=== PATIENT | male | born 1970 | race Caucasian/White ===

== ENCOUNTER 2016-12-25 16:50 | Observation (INO) ==
[2016-12-25 17:44] LABS: Basophils % 0.4 %; Eosinophils % 0.6 %; Hematocrit 45.3 % (37.5-50.1); Hemoglobin 16.2 g/dL (12.9-16.9); Immature Granulocytes % 0.4 % (0-4); Lymphocytes % 11.7 %; Mean Corpuscular HGB Conc 35.8 g/dL (31.6-35.5); Mean Corpuscular Hemoglobin 30.3 pg (28.0-33.3); Mean Corpuscular Volume 84.7 fL (83.0-100.0); Mean Platelet Volume 11.7 fL (9.4-12.4); Monocytes % 3.9 %; Platelet Count 196 K/mcL (140-400); Red Blood Count 5.35 M/mcL (4.19-5.50); Red Cell Distribution Width 12.5 % (11.5-14.5)
[2016-12-25 17:45] LABS: Basophils # 0.1 K/mcL (0.0-0.2); Eosinophils # 0.1 K/mcL (0.0-0.6); Lymphocytes # 1.5 K/mcL (0.6-4.6); Monocytes # 0.5 K/mcL (0.0-1.3); Neutrophils # 10.3 K/mcL (1.6-8.9)
[2016-12-25 18:00] LABS: BUN/Creatinine Ratio 15 (6-26); Blood Urea Nitrogen 27 mg/dL (8-26); Calcium 10.7 mg/dL (8.6-10.8); Carbon Dioxide 22 mEq/L (19-29); Chloride 98 mEq/L (98-109); Glucose 144 mg/dL (70-99); Magnesium 2.3 mg/dL (1.6-2.6); Osmolality,Calculated 290 (280-300); Potassium 3.5 mEq/L (3.5-4.5); Sodium 136 mEq/L (136-145); eGFR For African Americans 48 (> 60); eGFR For Non-African Americans 40 (> 60)
[2016-12-25 18:02] LABS: Acetaminophen < 1.0 mcg/mL (10-30); Salicylate < 5.0 mg/dL (15-30)
[2016-12-25] MEDS ORDERED: 0.9 % Sodium Chloride 1,000 ML IVC ONE ×2 (18:42→18:45)
--- NOTE | 2016-12-25 18:44 | Emergency Department Note ---
START Narrative - START START: I examined this patient and my medical decision-making was reviewed with the Resident Physician. I agree with the documented findings, disposition and treatment plan as described except to the extent set forth below. Patient presents to the ED with altered mental status and seizure. 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 He only ate a plum today. He recently started a new diet pill. EMS was called and he had a seizure en route. On arrival here he is diaphoretic. 99 rectal. Abdomen soft. Plan. Complaining of some cramping. Appears dehydrated with the creatinine to 1.8. We will check a CPK. Likely observation.
--- NOTE | 2016-12-25 18:58 | Emergency Department Note ---
Disposition Clinical Impression: New onset seizure Heat stroke Qualifiers: Encounter type: initial encounter Qualified Code(s): T67.0XXA - Heatstroke and sunstroke, initial encounter Disposition: Admitted As Inpatient Condition: Good Time of Disposition: 19:36 General Adult HPI - General Chief complaint: ED Seizure Stated complaint: "heat stroke" Time Seen by Provider: 12/25/16 17:19 Source: patient Limitations: no limitations Nursing Notes Reviewed: Yes Vital Signs Reviewed: Yes - History of Present Illness HPI Narrative: Patient got extremely hot while at work. Did not have a significant by mouth intake. Became confused. EMS states they witnessed a tonic-clonic seizure activity. Patient not complaining of generalized muscle aches. Is diaphoretic. Denies any pain other than the generalized muscle aches. Provocation was getting too hot. No alleviating factors. No radiation. Pain Scale: 10 - Related Data Home Medications Medication Instructions Recorded Confirmed Glucosamine Sulfate 1,000 mg PO DAILY 12/25/16 12/25/16 Ibuprofen [Motrin] 200 mg PO Q6H PRN 12/25/16 12/25/16 Sertraline [Zoloft] 50 - 100 mg PO DAILY 12/25/16 12/25/16 Allergies Allergy/AdvReac Type Severity Reaction Status Date / Time No Known Allergies Allergy Verified 05/06/15 07:25 All systems ED: reviewed and negative except as stated. Constitutional: Reports: other (Patient got extremely hot while at work.). Denies: fever, chills Cardiovascular: Reports: syncope. Denies: chest pain, palpitations Respiratory: Denies: cough, dyspnea Gastrointestinal: Denies: abdominal pain, nausea, vomiting, diarrhea, hematemesis Genitourinary: Denies: urgency, dysuria, frequency Musculoskeletal: Denies: back pain, neck pain Integumentary: Denies: rash Neurological: Reports: weakness. Denies: headache, numbness, paresthesias Past Medical History - Past Medical History Attestation: Yes The following information was validated with the patient. Medical history: Reports: no medical history, other Surgical history: Reports: no surgical history Psychiatric history: Reports: no psych history - Social History Smoking Status: Never smoker Alcohol use: Reports: none Drug use: Reports: unknown Physical Exam - General Limitations: no limitations General appearance: alert, in no apparent distress - Head Head exam: atraumatic, normocephalic, normal inspection - Eye Eye exam: Present: normal appearance, PERRL, EOMI. Absent: scleral icterus - ENT ENT exam: normal exam, normal oropharynx, mucous membranes dry - Neck Neck exam: Present: normal inspection, full ROM, trachea midline. Absent: tenderness - Chest Chest inspection: Present: normal inspection, symmetric chest wall rise. Absent : tenderness, rash - Respiratory Respiratory exam: Present: normal lung sounds bilaterally. Absent: respiratory distress, accessory muscle use - Cardiovascular Cardiovascular exam: Present: normal rhythm, tachycardia, normal heart sounds - Abdominal Exam Abdominal exam: Present: soft, Non-Tender, normal bowel sounds. Absent: organomegaly - Extremities Exam Extremities exam: Present: normal inspection, full ROM, normal capillary refill. Absent: tenderness, pedal edema - Back Exam Back exam: Present: normal inspection. Absent: tenderness, CVA tenderness (R), CVA tenderness (L) - Neurological Exam Neurological exam: Present: alert, oriented X3 - Psychiatric Psychiatric exam: Present: normal affect, normal mood - Skin Skin exam: Present: warm, intact, normal color, diaphoresis Course Course Narrative: Male patient presented to the emergency department from work. He presents with EMS. Patient is diaphoretic and ashen in color. EMS states that they found him at work which was a very hot environment. He is only had a plum to eat today. He has been on diet medication for the past week. They state that he was confused on their arrival. After they got him in a truck and attempted to start cooling him he had what appeared to be a seizure. This does not appear that he has urinated or defecated on himself however they describe a tonic- clonic motion. Patient has no history of seizures. They state the patient was very warm to touch. They gave 1 L of fluid and attempted to call the patient with ice packs. His blood glucose was within normal limits. He is alert and oriented 3 while here. He is diaphoretic. He does have a rectal temperature of 99.3. He has ice packs placed in his axillas. Basic lab workup showed an elevated creatinine. We also scanned patient's head for new onset seizures. This was normal. He has been given 3 L of fluid. He denies any chest pain or shortness of breath. His lung sounds are clear heart tones are normal. His abdomen is soft and nontender on exam. He is not able to give us a urine sample. He is complaining of cramps all over but refuses pain medication. We will admit patient to the hospital for heat stroke. He is agreeable to this. Vital Signs Temperature 98.6 F 12/25/16 16:51 Pulse Rate 74 12/25/16 16:51 Respiratory Rate 18 12/25/16 16:51 Blood Pressure 109/68 12/25/16 16:51 O2 Sat by Pulse Oximetry 93 12/25/16 16:51 Temperature 98.1 F 12/26/16 15:57 Pulse Rate 64 12/26/16 15:57 Respiratory Rate 16 12/26/16 15:57 Blood Pressure 108/71 12/26/16 15:57 O2 Sat by Pulse Oximetry 96 12/26/16 15:57 Medical Decision Making - Medical Records Medical records reviewed: Yes I reviewed the patient's medical records. - Lab Data Lab results reviewed: Yes I reviewed the patient's lab results. Result diagrams: 12/26/16 02:56 12/26/16 02:56 Lab Results 12/25/16 12/25/16 12/25/16 Range/Units 16:52 17:35 17:35 WBC 12.4 H (4.3-11.1) K/mcL RBC 5.35 (4.19-5.50) M/mcL Hgb 16.2 (12.9-16.9) g/dL Hct 45.3 (37.5-50.1) % MCV 84.7 (83.0-100.0) fL MCH 30.3 (28.0-33.3) pg MCHC 35.8 H (31.6-35.5) g/dL RDW 12.5 (11.5-14.5) % Plt Count 196 (140-400) K/mcL MPV 11.7 (9.4-12.4) fL Immature Gran % 0.4 (0-4) % Seg Neutrophils % 83.0 % Lymphocytes % 11.7 % Monocytes % 3.9 % Eosinophils % 0.6 % Basophils % 0.4 % Neutrophils # 10.3 H (1.6-8.9) K/mcL Lymphocytes # 1.5 (0.6-4.6) K/mcL Monocytes # 0.5 (0.0-1.3) K/mcL Eosinophils # 0.1 (0.0-0.6) K/mcL Basophils # 0.1 (0.0-0.2) K/mcL PT (9.4-12.1) Seconds INR APTT (26.0-36.0) Seconds Sodium 136 (136-145) mEq/L Potassium 3.5 (3.5-4.5) mEq/L Chloride 98 (98-109) mEq/L Carbon Dioxide 22 (19-29) mEq/L BUN 27 H (8-26) mg/dL Creatinine 1.83 H (0.72-1.25) mg/dL Est GFR ( Amer) 48 L (> 60) Est GFR (Non-Af Amer) 40 L (> 60) BUN/Creatinine Ratio 15 (6-26) Glucose 144 H (70-99) mg/dL POC Glucose 149 H (58-89) Calculated Osmolality 290 (280-300) Calcium 10.7 (8.6-10.8) mg/dL Magnesium 2.3 (1.6-2.6) mg/dL Total Bilirubin (0.2-1.2) mg/dL Direct Bilirubin (0.0-0.5) mg/dL Indirect Bilirubin (0.0-1.2) mg/dL AST (5-34) Units/L ALT (0-55) Units/L Alkaline Phosphatase (38-126) Units/L Creatine Kinase 413 H (30-200) Units/L Serum Total Protein (6.0-8.3) g/dL Albumin (3.5-5.0) g/dL Globulin (2.4-3.5) g/dL Albumin/Globulin Ratio (1.1-2.2) Salicylates < 5.0 L (15-30) mg/dL Acetaminophen < 1.0 L (10-30) mcg/mL 12/25/16 12/25/16 Range/Units 17:35 17:35 WBC (4.3-11.1) K/mcL RBC (4.19-5.50) M/mcL Hgb (12.9-16.9) g/dL Hct (37.5-50.1) % MCV (83.0-100.0) fL MCH (28.0-33.3) pg MCHC (31.6-35.5) g/dL RDW (11.5-14.5) % Plt Count (140-400) K/mcL MPV (9.4-12.4) fL Immature Gran % (0-4) % Seg Neutrophils % % Lymphocytes % % Monocytes % % Eosinophils % % Basophils % % Neutrophils # (1.6-8.9) K/mcL Lymphocytes # (0.6-4.6) K/mcL Monocytes # (0.0-1.3) K/mcL Eosinophils # (0.0-0.6) K/mcL Basophils # (0.0-0.2) K/mcL PT 11.6 (9.4-12.1) Seconds INR 1.1 APTT 30.3 (26.0-36.0) Seconds Sodium (136-145) mEq/L Potassium (3.5-4.5) mEq/L Chloride (98-109) mEq/L Carbon Dioxide (19-29) mEq/L BUN (8-26) mg/dL Creatinine (0.72-1.25) mg/dL Est GFR ( Amer) (> 60) Est GFR (Non-Af Amer) (> 60) BUN/Creatinine Ratio (6-26) Glucose (70-99) mg/dL POC Glucose (58-89) Calculated Osmolality (280-300) Calcium (8.6-10.8) mg/dL Magnesium (1.6-2.6) mg/dL Total Bilirubin 0.8 (0.2-1.2) mg/dL Direct Bilirubin 0.3 (0.0-0.5) mg/dL Indirect Bilirubin 0.5 (0.0-1.2) mg/dL AST 58 H (5-34) Units/L ALT 92 H (0-55) Units/L Alkaline Phosphatase 62 (38-126) Units/L Creatine Kinase (30-200) Units/L Serum Total Protein 8.8 H (6.0-8.3) g/dL Albumin 4.9 (3.5-5.0) g/dL Globulin 3.9 H (2.4-3.5) g/dL Albumin/Globulin Ratio 1.3 (1.1-2.2) Salicylates (15-30) mg/dL Acetaminophen (10-30) mcg/mL - Radiology Data Radiology results reviewed: Yes I reviewed the patient's radiology results. Head CT 12/25/16 17:20 IMPRESSION: No acute intracranial abnormality. D/ / Brandon Zuniga MD / Brandon Zuniga MD Interpreting Provider: Brandon Zuniga MD - EKG Data EKG #1 EKG attestation: Yes I reviewed and interpreted this EKG. EKG results narrative: Normal sinus rhythm at a rate of 75. NV interval is 143. Respirations 93. QT is 372. QTC is 401. No signs of acute ischemia. No old EKG to compare to.
[2016-12-25 19:02] LABS: Creatine Kinase 413 Units/L (30-200)
[2016-12-25] MEDS ORDERED: Naloxone 0.4 MG/ML INJ IVP PRN (20:57)
[2016-12-25] MEDS ORDERED: Ondansetron 4 MG/2 ML VIAL IVP PRN (20:57)
[2016-12-25] MEDS ORDERED: Acetaminophen 325 MG TABLET PO PRN (20:57)
[2016-12-25] MEDS ORDERED: 0.9 % Sodium Chloride 1,000 ML IVC SCH (21:00)
[2016-12-25] MEDS ORDERED: 0.9 % Sodium Chloride w KCl 40 MEQ/1,000 ML MLS IVC SCH (21:00)
--- NOTE | 2016-12-25 21:03 | Event Note ---
Date of Encounter: 12/25/16 Time of Encounter: 20:57 I examined this patient and my medical decision-making was reviewed with the Resident Physician, Dr. Daisha Magana. I agree with the documented findings, disposition and treatment plan as described except to the extent set forth below. I have independently obtained history and examined the patient and my findings are summarized below: Patient was brought by EMS from work after he suffered a heat stroke. He had a witnessed seizure in the ambulance. We will treat him with IV fluids. Seizure precautions. I will order an MRI to workup the cause of seizures.
--- NOTE | 2016-12-25 21:05 | Internal Med History&Physical ---
<Daisha Magana - Last Filed: 12/25/16 22:32> Date of Encounter: 12/25/16 Time of Encounter: 20:30 Assessment and Plan (1) Heat stroke Current visit: Yes Status: Acute - With reported altered mental status, tachycardiac, dyspnea and seizure. - Improved as patient's mental status and vital sign including temperature normalized. - Continue aggressive IV fluid resuscitation. - Will check LFTs, PTT, PT/INR. - Continue close monitoring. Qualifiers: Encounter type: initial encounter Qualified Code(s): T67.0XXA - Heatstroke and sunstroke, initial encounter (2) New onset seizure Current visit: Yes Status: Acute - Likely associated with heat stroke. His diet medication Contrave also has seizure listed as possible side effect. - Head CT found no acute intracranial abnormality. - Will obtain brain MRI for further evaluation. - Hold Contrave. Patient is also recommended to discuss with his PCP about continuation of that medication after discharge. - Seizure precaution. - IV Ativan prn seizure activity. - Closely monitor. (3) Rhabdomyolysis Current visit: Yes Status: Acute - Elevated CK (413) on admission. - Likely secondary to heat stroke and seizure. - Continue aggressive IV fluid resuscitation. - Recheck renal function and CK in the midnight and AM. Qualifiers: Rhabdomyolysis type: non-traumatic Qualified Code(s): M62.82 - Rhabdomyolysis (4) TRAE (acute kidney injury) Current visit: Yes Status: Acute - SCr 1.83, which is significantly elevated compared to SCr 0.71 pm 10/22/15. - Likely secondary to dehydration, heat stroke and/or rhabdomyolysis. - Continue aggressive IV fluid resuscitation. - Avoid nephrotoxin. - Strict I/O. - Closely monitor renal function and electrolytes. (5) DYAN on CPAP Current visit: Yes Status: Chronic - Continue CPAP use. Internal Medicine - H&P: HPI Chief complaint: heat stroke Admitted From: Emergency Dept Plans for Post Hospital Care: Home History of present illness: Mr. Lawson is a 46 year old male with PMH of DYAN currently on CPAP at home. Patient was send to [facility] ED for heat stroke. 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 Patient reports seeing "purple splash" and having tunnel hearing, dizziness, tachypnea, dyspnea and vomiting before he blacked out. He states he laid down and denies hitting any part of his body. Per EMS, patient had witnessed tonic-clonic seizure at the scene but no tongue bitting or incontinence. Patient received 1L of IV fluid and was brought to the ED. Patient reports being able to recognized where he is within 30 secs after he woke up. Patient complains of diffuse muscle cramp since. Patient denies known history of seizure. Patient received 2L of IV NS in the ED. Past Med Surg Social Fam HX - Past Medical History Medical history: no medical history, other Psychiatric history: no psych history - Past Surgical History Surgical History: no surgical history - Social History Smoking Status: Never smoker Alcohol use: none Drug use: unknown - Family History Father Hx Family Endocrine Disorder: Yes (DM) Internal Medicine - H&P: Meds Glucosamine Sulfate 1,000 mg PO DAILY 12/25/16 [History] Ibuprofen [Motrin] 200 mg PO Q6H PRN 12/25/16 [History] Naltrexone HCl/Bupropion HCl [Contrave ER 8-90 mg Tablet] 1 tab PO AD 12/25/16 [ History] Sertraline [Zoloft] 50 - 100 mg PO DAILY 12/25/16 [History] Allergies No Known Allergies Allergy (Verified 05/06/15 07:25) All Systems PM: A 10-system review of systems was performed and is negative for pertinent findings except as documented above in the HPI. - Constitutional Constitutional: excessive sweating, no anorexia, no chills - EENT Eyes: as per HPI Ears: as per HPI Nose, mouth and throat: no dysphagia, no odynophagia - Cardiovascular Cardiovascular ROS IM: no chest pain, no edema - Respiratory Respiratory: no cough, no dyspnea, no hemoptysis - Gastrointestinal Gastrointestinal: no abdominal pain, no diarrhea, no hematochezia, no melena - Genitourinary Genitourinary ROS male: no difficulty urinating, no dysuria, no hematuria - Musculoskeletal Musculoskeletal ROS IM: muscle cramps, no arthralgias - Integumentary Integumentary IM: no pruritus, no rash - Neurological Neurological ROS: no focal weakness, no numbness, no tingling - Hematologic/Lymphatic Hematologic/Lymphatic: no easy bleeding, no easy bruising - Constitutional Vitals: Temp Pulse Resp BP Pulse Ox 98.2 F 69 16 125/71 95 07/31/17 20:21 12/25/16 20:21 12/25/16 20:21 12/25/16 20:21 12/25/16 20:21 General appearance: Present: cooperative, A&O X 3, no acute distress, answers questions appropriately - Head Head exam: Present: atraumatic, normocephalic - Eye Eye exam: Present: EOMI, PERRL, conjuntiva pink, sclera anicteric - Neck Neck exam general surgery: Present: supple, trachea midline. Absent: lymphadenopathy - Respiratory Respiratory exam: Present: CTAB. Absent: accessory muscle use, rales, rhonchi, wheezes - Cardiovascular Cardiovascular exam: Present: RRR, +S1, +S2. Absent: diastolic murmur, gallop, rubs, systolic murmur - GI/Abdominal GI/Abdominal exam: Present: normal bowel sounds, soft, no peritoneal signs. Absent: distended, tenderness - Extremities Exam Extremities exam: Present: warm, radial pulses palpable and symetrical. Absent : calf tenderness, cyanotic, pedal edema - Neurological Exam Neurological exam: Present: CN II-XII intact, oriented X3, no focal deficits. Absent: pronater drift, facial droop, speech deficit - Skin Skin exam: Present: dry, intact, warm Internal Med - H&P Results - Labs CBC & Chem 7: 12/25/16 17:35 12/25/16 17:35 <Too Aragon - Last Filed: 12/25/16 22:38> Date of Encounter: 12/25/16 Internal Medicine - H&P: HPI History of present illness: Mr. Lawson is a 46 year old male All Systems PM: A 10-system review of systems was performed and is negative for pertinent findings except as documented above in the HPI. - Constitutional Vitals: Temp Pulse Resp BP Pulse Ox 98.2 F 69 16 125/71 95 12/25/16 20:21 12/25/16 20:21 12/25/16 20:21 12/25/16 20:21 12/25/16 20:21 Internal Med - H&P Results - Labs CBC & Chem 7: 12/25/16 17:35 12/25/16 17:35 Labs: Urine 12/25/16 Range/Units 20:00 Urine Color Dark Yellow (Yellow) Urine Clarity Cloudy A (Clear) Urine pH 5.5 (5.0-8.0) pH Units Ur Specific [place] 1.025 (1.010-1.025) Urine Protein 100 H (Neg-Trace) mg/dL Urine Glucose (UA) Normal (Normal) mg/dL - Impressions ITS Impressions Brain MRI 12/25/16 20:44 IMPRESSION: No acute abnormality identified. D/ / Flo Locke MD / Flo Locke MD Interpreting Provider: Flo Locke MD - Attending Attestation I examined this patient and my medical decision-making was reviewed with the Resident Physician, Dr. Daisha Magana. I agree with the documented findings, disposition and treatment plan as described except to the extent set forth below. I have independently obtained history and examined the patient and my findings are summarized below: Please see event note. Briefly, patient with heat stroke and seizure As well as acute kidney injury. Fluid and electrolyte repletion. Seizure precautions. MRI was obtained and showed no acute findings.
[2016-12-25 21:15] LABS: Bilirubin,Urine Small (Negative); Blood,Urine Negative (Negative); Clarity,Urine Cloudy (Clear); Color,Urine Dark Yellow (Yellow); Glucose,Urine (UA) Normal (Normal); Ketones,Urine Trace mg/dL (Negative); Leukocyte Esterase,Urine Negative (Negative); Nitrite,Urine Negative (Negative); PH,Urine 5.5 pH Units (5.0-8.0); Protein,Urine 100 mg/dL (Neg-Trace); Specific Gravity,Urine 1.025 (1.010-1.025); Urobilinogen,Urine Normal (Normal)
[2016-12-25 21:18] LABS: Squamous Epithelial Cell,Urine Many per lpf (None-Few)
[2016-12-25 21:20] LABS: Amphetamine Screen,Urine Negative ng/mL (Cutoff=1000); Barbiturate Screen,Urine Negative ng/mL (Cutoff=200); Benzodiazepines Screen,Urine Negative ng/mL (Cutoff=200); Cannabinoid Screen,Urine Negative ng/mL (Cutoff = 50); Cocaine Screen,Urine Negative ng/mL (Cutoff= 300); Opiate Screen,Urine Negative ng/mL (Cutoff=300); Phencyclidine Screen,Urine Negative ng/mL (Cutoff=25)
[2016-12-25 21:37] LABS: Bacteria,Urine Few per hpf (None-Few); Granular Casts,Urine Few per lpf (None Seen); Hyaline Casts,Urine Moderate per lpf (None-Few)
[2016-12-25 22:07] LABS: INR 1.1; Prothrombin Time 11.6 Seconds (9.4-12.1)
[2016-12-25 22:10] LABS: Activated Partial Thrombo Time 30.3 Seconds (26.0-36.0)
[2016-12-25 22:15] LABS: Albumin 4.9 g/dL (3.5-5.0); Albumin/Globulin Ratio 1.3 (1.1-2.2); Bilirubin,Direct 0.3 mg/dL (0.0-0.5); Bilirubin,Indirect 0.5 mg/dL (0.0-1.2); Bilirubin,Total 0.8 mg/dL (0.2-1.2); Globulin 3.9 g/dL (2.4-3.5); Total Protein 8.8 g/dL (6.0-8.3)
[2016-12-25] MEDS ORDERED: *HR* LORazepam 2 MG/ML VIAL IVP PRN (22:31)
[2016-12-25] MEDS: 0.9 % Sodium Chloride w KCl 20 MEQ/1,000 ML MLS IVC SCH (23:56)
[2016-12-26 00:36] LABS: BUN/Creatinine Ratio 28 (6-26); Blood Urea Nitrogen 31 mg/dL (8-26); Calcium 9.3 mg/dL (8.6-10.8); Carbon Dioxide 25 mEq/L (19-29); Chloride 102 mEq/L (98-109); Creatine Kinase 428 Units/L (30-200); Glucose 135 mg/dL (70-99); Osmolality,Calculated 293 (280-300); Potassium 3.9 mEq/L (3.5-4.5); Sodium 137 mEq/L (136-145); eGFR For African Americans > 60 (> 60); eGFR For Non-African Americans > 60 (> 60)
[2016-12-26 03:25] LABS: Basophils % 0.3 %; Eosinophils # 0.2 K/mcL (0.0-0.6); Eosinophils % 1.4 %; Immature Granulocytes % 0.3 % (0-4); Lymphocytes # 2.2 K/mcL (0.6-4.6); Lymphocytes % 19.2 %; Mean Corpuscular HGB Conc 34.8 g/dL (31.6-35.5); Mean Corpuscular Hemoglobin 29.9 pg (28.0-33.3); Mean Corpuscular Volume 86.1 fL (83.0-100.0); Mean Platelet Volume 11.7 fL (9.4-12.4); Monocytes # 0.9 K/mcL (0.0-1.3); Monocytes % 8.2 %; Neutrophils # 8.1 K/mcL (1.6-8.9); Platelet Count 180 K/mcL (140-400); Red Blood Count 4.88 M/mcL (4.19-5.50); Red Cell Distribution Width 12.6 % (11.5-14.5); Segmented Neutrophils % 70.6 %
[2016-12-26 03:27] LABS: Hemoglobin 14.6 g/dL (12.9-16.9)
[2016-12-26 03:41] LABS: Alanine Aminotransferase 72 Units/L (0-55); Alkaline Phosphatase 53 Units/L (38-126); Aspartate Amino Transferase 39 Units/L (5-34); BUN/Creatinine Ratio 33 (6-26); Bilirubin,Total 0.6 mg/dL (0.2-1.2); Blood Urea Nitrogen 29 mg/dL (8-26); Calcium 9.1 mg/dL (8.6-10.8); Carbon Dioxide 23 mEq/L (19-29); Chloride 105 mEq/L (98-109); Creatine Kinase 522 Units/L (30-200); Globulin 3.7 g/dL (2.4-3.5); Glucose 112 mg/dL (70-99); Osmolality,Calculated 291 (280-300); Sodium 137 mEq/L (136-145); Total Protein 7.5 g/dL (6.0-8.3); eGFR For African Americans > 60 (> 60); eGFR For Non-African Americans > 60 (> 60)
[2016-12-26 03:43] LABS: Albumin 3.8 g/dL (3.5-5.0)
[2016-12-26] MEDS: 0.9 % Sodium Chloride w KCl 20 MEQ/1,000 ML MLS IVC SCH ×3 (03:48→10:45)
[2016-12-26] MEDS: 0.9 % Sodium Chloride 1,000 ML IVC SCH ×3 (06:39→13:12)
--- NOTE | 2016-12-26 15:26 | Electrocardiograph Report ---
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
[2016-12-26 15:59] VITALS: BP 108/71
--- NOTE | 2016-12-26 17:07 | Discharge Summary ---
Date of Encounter: 12/26/16 Time of Encounter: 10:35 - Discharge Diagnosis (1) New onset seizure Priority: Secondary Status: Acute Comments: Pt states that he did not have a seizure, however, he did have tunnel vision, tachypnea and dyspnea, emesis prior to "blacking out". Witnesses at scene report tonic-clonic seizure, no tongue biting or incontinence. Apparently there was no post ictal phase and he was coherent and alert immediately after. He was reporting diffuse muscle cramping and has elevated CK. He has had 4 liters of fluid and 1 liter with potassium. Seizure most likely due to heat exhaustion/stroke and not an actual neurological event. He has had none since. Pt will be advised to not continue Contrave po. 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 He states that breaks are not guaranteed, but that he does drink plenty of fluids. Pt states that he had altered mental status and that he became disoriented and fell in front of his work station at work yesterday. AMS, tachycardia, dyspnea was reported at time of event. Pt has received 4L of fluid and appears to be euvolemic. REnal function has returned to normal, electrolytes are normal. Pt is alert ,oriented, and vitals are stable and WNL . Qualifiers: Encounter type: initial encounter Qualified Code(s): T67.0XXA - Heatstroke and sunstroke, initial encounter (3) Rhabdomyolysis Priority: Secondary Status: Acute Comments: CK is elevating. Renal function has returned to normal. Pt denies any muscle pain . Urine is clear and light jennifer colored. Qualifiers: Rhabdomyolysis type: non-traumatic Qualified Code(s): M62.82 - Rhabdomyolysis (4) DYAN on CPAP Priority: Secondary Status: Chronic Comments: Continue bipap athome. (5) TRAE (acute kidney injury) Priority: Secondary Status: Resolved Comments: Renal function has returned to normal Sr Cr 1.12 and GFR >60. Pt has received IVF> (6) DVT prophylaxis Priority: Secondary Status: Acute Comments: Pt ambulatory and observation status. - Discharge Medications Home Medications: Glucosamine Sulfate 1,000 mg PO DAILY 12/25/16 [History] Ibuprofen [Motrin] 200 mg PO Q6H PRN 07/31/17 [History] Sertraline [Zoloft] 50 - 100 mg PO DAILY 12/25/16 [History] Allergies/Adverse Reactions: Allergies No Known Allergies Allergy (Verified 05/06/15 07:25) Procedures/tests Complete & Pending: Procedures Performed prior 72 hours Category Date Time Status MR head/brain wo con [MR] Routine MRI 12/25/16 20:44 Completed Date of admission: 12/25/16 18:57 Primary care physician: Prince Alamo DO Discharging clinician: Marlyn Tubbs Anticipated date of discharge: 12/26/16 - Patient Status Disposition: Home, Self-Care Functional capacity at discharge: independent ambulation Overall status at discharge: patient is back to baseline - Discharge Instructions Follow Up With: Prince Alamo DO [Primary Care Provider] - Additional Instructions: Follow up with your PCP in the next 7-10 days for a recheck and follow up visit. Return to work on . Stop taking the Contrave and talk to your doctor about starting a different medicaiton Return to the ER as needed for any other problems or concerns or if your syptoms return or worsen. Hospital course: Mr. Lawson is a 46 year old male - Time Spent with Patient Total time spent providing and/or coordinating discharge services: Less than 30 minutes - Constitutional Vitals: Temp Pulse Resp BP Pulse Ox 98.1 F 64 16 108/71 96 12/26/16 15:57 12/26/16 15:57 12/26/16 15:57 12/26/16 15:57 12/26/16 15:57 General appearance: Present: cooperative, A&O X 3, no acute distress, answers questions appropriately - Head Head exam: Present: normal inspection - Eye Eye exam: Present: normal appearance, conjuntiva pink - ENT ENT exam: Present: mucous membranes moist, normal exam, normal external ear exam - Neck Neck exam general surgery: Present: normal inspection. Absent: lymphadenopathy , tenderness - Respiratory Respiratory exam: Present: CTAB. Absent: chest wall tenderness, rales, respiratory distress, rhonchi, stridor, wheezes - Cardiovascular Cardiovascular exam: Present: RRR, +S1, +S2. Absent: clicks, diastolic murmur, gallop, systolic murmur - GI/Abdominal GI/Abdominal exam: Present: normal bowel sounds, soft. Absent: distended, tenderness - Extremities Exam Extremities exam: Present: normal inspection, warm, radial pulses palpable and symetrical. Absent: pedal edema, tenderness - Neurological Exam Neurological exam: Present: alert, oriented X3, no focal deficits. Absent: facial droop, speech deficit
== END 2016-12-26 18:24 | disposition home or self-care (01) ==
LOC: EMEROO 16:50 → 3BNU 16:50
PROVIDERS: ADMIT Internal Medicine; ATTEND Nurse Practitioner Family